=== PATIENT | female | born 1995 | race Caucasian/White ===

== ENCOUNTER 2022-03-09 19:43 | Emergency (ER) | payer OTHER, SELFPAY ==
[2022-03-09 19:50] VITALS: BP 147/68; PULSE 74; RESP 17; TEMP 36.4; O2SAT 100
--- NOTE | 2022-03-09 20:19 | ED.GENADULT ---
HPI - General Adult General Chief complaint: Vaginal Bleeding Stated complaint: 13 weeks preg, vag bleeding Time Seen by Provider: 03/09/22 19:59 History of Present Illness HPI narrative: Patient is a 27-year-old G2, P2 that presents to the emergency department with chief complaint of vaginal bleeding. The patient reports that she is approximately 13 weeks and has seen her OB and had an ultrasound that confirmed intrauterine but was found to have a subchorionic hemorrhage. The patient states this evening she started having vaginal bleeding that saturated 1 pad and was told by her OB that if she bleeds through more than 1 pad she should come to the emergency department. The patient reports she is Rh+ reports a little bit of cramping in her back and in her abdomen. The patient denies passage of clots or tissue the patient reports that her first was a twin and was complicated with preeclampsia. Patient reports that she is on a baby aspirin due to her prior history of preeclampsia. Related Data Allergies Allergy/AdvReac Type Severity Reaction Status Date / Time No Known Allergies Allergy Verified 03/09/22 19:45 Review of Systems Review of Systems: A 10 system review of systems was completed on the patient and is negative except for what is stated in the HPI. Nursing and ancillary documentation was reviewed. Exam Narrative: GENERAL: Well-appearing, well-nourished, and in no acute distress. HEAD: Normocephalic, atraumatic. EYES: PERRLA and EOMI. ENT: Nares clear, no rhinorrhea or epistaxis. Mucous membranes moist. NECK: Supple. CHEST: Clear to auscultation. No respiratory distress. HEART: Regular rate and rhythm. No murmur heard. Normal peripheral pulses. ABDOMEN: Soft, nontender, nondistended, normal active bowel sounds. : A speculum exam was performed with a nurse present there was a small amount of blood in the vaginal vault cervix was closed EXTREMITIES: Normal range of motion. No edema. SKIN: Warm, dry, no rash. NEURO: No focal deficits. Alert and oriented x3. PSYCH: Normal mood and affect. Course Course Emergency Course: Bedside transabdominal ultrasound was performed by me there was positive cardiac activity and positive movement. Vital Signs Vital signs: Vital Signs Temperature 36.4 C L 03/09/22 19:50 Pulse Rate 74 03/09/22 19:50 Respiratory Rate 17 03/09/22 19:50 Blood Pressure 147/68 H 03/09/22 19:50 Pulse Oximetry 03/09/22 19:50 Oxygen Delivery Room Air 03/09/22 19:50 Temperature 36.4 C L 03/09/22 19:50 Pulse Rate 74 03/09/22 19:50 Respiratory Rate 17 03/09/22 19:50 Blood Pressure 147/68 H 03/09/22 19:50 Pulse Oximetry 100 03/09/22 19:50 Oxygen Delivery Room Air 03/09/22 19:50 Medical Decision Making Vital Signs Vital Signs: Vital Signs Temperature 36.4 C L 03/09/22 19:50 Pulse Rate 74 03/09/22 19:50 Respiratory Rate 17 03/09/22 19:50 Blood Pressure 147/68 H 03/09/22 19:50 Pulse Oximetry 03/09/22 19:50 Oxygen Delivery Room Air 03/09/22 19:50 Temperature 36.4 C L 03/09/22 19:50 Pulse Rate 74 03/09/22 19:50 Respiratory Rate 03/09/22 19:50 Blood Pressure 147/68 H 03/09/22 19:50 Pulse Oximetry 03/09/22 19:50 Oxygen Delivery Room Air 03/09/22 19:50 Lab Data Result diagrams: 03/09/22 20:30 Labs: Lab Results 03/09/22 03/09/22 03/09/22 Range/Units 20:30 20:30 20:30 WBC 9.4 (4.5-10.0) K/mm3 RBC 3.80 L (4.2-5.4) M/mm3 Hgb 11.4 L (12.0-15.0) g/dL Hct 33.5 L (37.0-47.0) % MCV 88.2 (80-100) fl MCH 30.0 (26-34) pg MCHC 34.0 (32-36) g/dl RDW 12.2 (11.5-14.5) % Plt Count 231 (150-375) k/mm3 MPV 11.9 H (7.4-10.4) fl Immature Gran % (Auto) 0.3 (0-0.5) % Neut % (Auto) 75.3 H (45.5-73.1) % Lymph % (Auto) 16.6 L (18.3-44.2) % [place] % (Auto) 6.4 (2.6-8.5) % Eos % (A
[2022-03-09 20:40] LABS: Basophils Percent Auto 0.4 % (0.2-1.2); Eosinophils Absolute Auto 0.1 K/mm3 (0-0.3); Hematocrit 33.5 % (37.0-47.0); Hemoglobin 11.4 g/dL (12.0-15.0); Immature Granulocyte Absolute 0.03 K/mm3 (0.00-0.031); Immature Granulocyte Percent A 0.3 % (0-0.5); Lymphocytes Absolute Auto 1.56 K/mm3 (0.9-3.2); Lymphocytes Percent Auto 16.6 % (18.3-44.2); Mean Corpuscular Volume 88.2 fl (80-100); Mean Platelet Volume 11.9 fl (7.4-10.4); Monocytes Absolute Auto 0.6 K/mm3 (0.1-0.6); Monocytes Percent Auto 6.4 % (2.6-8.5); Neutrophils Absolute Auto 7.1 K/mm3 (1.3-6.7); Neutrophils Percent Auto 75.3 % (45.5-73.1); Platelet Count Result 231 k/mm3 (150-375); Red Cell Distribution Width 12.2 % (11.5-14.5); White Blood Count 9.4 K/mm3 (4.5-10.0)
[2022-03-09 20:41] LABS: Add Urine Microscopic? YES; Appearance Urine Slightly Cloudy (Clear); Bilirubin Urine 1+ (Negative); Blood Urine 3+ (Negative); Color Urine Red (Yellow); Glucose Urine UA Negative (Negative); Ketones Urine Negative (Negative); Leukocyte Esterase Ur Negative LEU/UL (Negative); Nitrate Urine Negative (Negative); Protein Urine 3+ mg/dL (Negative); Urobilinogen Urine 0.2 mg/dL (<2.0)
[2022-03-09 20:45] LABS: RBC Urine >75 /hpf (0-2); Squamous Epithelial Cell Urine Few /hpf (Few); WBC Urine 0-3 /hpf
[2022-03-09] MEDS: SODIUM CHLORIDE 0.9% IV 1,000 ML 999 ML IV CONT (21:01)
[2022-03-09] MEDS: ONDANSETRON INJ 4 MG/2 ML VIAL IV PUSH (21:03)
[2022-03-09 22:39] VITALS: BP 111/58
== END 2022-03-09 22:42 | disposition home or self-care (01) ==
LOC: ANHED 20:46
PROVIDERS: Emergency Medicine; Emergency Provider Emergency Medicine; PCP Advanced Practice Midwife
DX: O20.0 Threatened abortion (principal); Z3A.13 13 weeks gestation of pregnancy; Z79.82 Long term (current) use of aspirin
CPT/HCPCS: 36415; 81001; 84702; 85025; 85461; 96361; 96374; 99284; J2405; J7030